=== PATIENT | female | born 1950 | race Caucasian/White ===

== ENCOUNTER 2016-11-01 17:10 | Emergency (ER) | payer BC ==
[2016-11-01 17:21] VITALS: BP 128/64
--- NOTE | 2016-11-01 17:42 | UC ---
Upper Extremity HPI - HPI Summary HPI Summary: 65 y/o female presents to the urgent care c/o a very bruised left ring finger since yesterday. Pt doesn't recall any injury or insect bite. She was at a conference when she noticed. She applied ice and it became more purplish in color. Pt denies pain, swelling, numbness, SOB, chest pain, N/V/D. - History of Current Complaint Chief Complaint: UCUpperExtremity Stated Complaint: FINGER INJURY Time Seen by Provider: 11/01/16 17:33 Hx Obtained From: Patient Hx Last Menstrual Period: menopausal ?: No Onset/Duration: Sudden Onset, Lasting Days - 1 Severity Initially: Mild Severity Currently: Moderate Pain Intensity: 0 Pain Scale Used: 0-10 Numeric Location Of Pain: Is Discrete @ - LF #4phalanx with a bruise Aggravating Factor(s): Nothing Alleviating Factor(s): Other: - nothing Associated Signs And Symptoms: Positive: Bruising. Negative: Swelling, Redness , Fever, Weakness, Numbness/Tingling - Risk Factors Non-Orthopedic Risk Factor: Negative DVT Risk Factors: Negative Septic Arthritis Risk Factor: Negative - Allergies/Home Medications Allergies/Adverse Reactions: Allergies Allergy/AdvReac Type Severity Reaction Status Date / Time No Known Allergies Allergy Verified 11/01/16 17:21 PMH/Surg Hx/FS Hx/Imm Hx Previously Healthy: Yes - Pt denies any PMHX - Surgical History Surgical History: None - Family History Family History: Dyslipidemia - Social History Occupation: Employed Full-time Lives: With Family Alcohol Use: None Substance Use Type: None Smoking Status (MU): Never Smoked Tobacco Review of Systems Constitutional: Negative Skin: Bruising - LT #4 phalanx Eyes: Negative ENT: Negative Respiratory: Negative Cardiovascular: Negative Gastrointestinal: Negative Genitourinary: Negative Motor: Negative Neurovascular: Negative Musculoskeletal: Negative Neurological: Negative Psychological: Negative Is Patient Immunocompromised?: No All Other Systems Reviewed And Are Negative: Yes Physical Exam Triage Information Reviewed: Yes Appearance: Well-Appearing, No Pain Distress, Well-Nourished, Thin Vital Signs: Initial Vital Signs Temp 99.9 F 11/01/16 17:16 Pulse 62 11/01/16 17:16 Resp 16 11/01/16 17:16 BP 128/64 11/01/16 17:16 Pulse Ox 100 11/01/16 17:16 Vital Signs Reviewed: Yes Eye Exam: Normal Eyes: Positive: Conjunctiva Clear - PERRLA, EOMI ENT Exam: Normal ENT: Positive: Normal ENT inspection, Hearing grossly normal, Pharynx normal, TMs normal Neck exam: Normal Neck: Positive: Supple, Nontender, No Lymphadenopathy Respiratory Exam: Normal Respiratory: Positive: Chest non-tender, Lungs clear, Normal breath sounds, No respiratory distress Cardiovascular Exam: Normal Cardiovascular: Positive: RRR, No Murmur, Pulses Normal, Brisk Capillary Refill Abdominal Exam: Normal Abdomen Description: Positive: Nontender, No Organomegaly, Soft. Negative: CVA Tenderness (R), CVA Tenderness (L) Bowel Sounds: Positive: Present Musculoskeletal Exam: Normal Musculoskeletal: Positive: Strength Intact, ROM Intact, No Edema Neurological Exam: Normal Neurological: Positive: Alert, Muscle Tone Normal Psychological Exam: Normal Skin: Positive: Other - LF #4 phalanx with ventral bruising, no swelling, non tender to palaption, FROM of all LF hand phalanxes, no lymphadenopathy, brisk capillary refill, positive pulses, sensation WNL, positive reflexes. Pt with a wedding band in that phalanx Upper Extremity Course/Dx - Course Course Of Treatment: 65 y/o female presents to the urgent care c/o a very bruised left ring finger since yesterday. Pt doesn't recall any injury or insect bite. She was at a conference when she noticed. She applied ice and it became more purplish in color. Pt denies pain, swelling, numbness, SOB, chest pain, N/V/D. HX obtained. Pt W/o any PMHX or not taking any blood thinners. Pt with LF #4 phalanx superficial hematoma w/o known injury. Pt explained there probability on swelling and advised to removed wedding band. I tried to remove it with lubricant gel w/o any success. Pt stated the ring has been there for several years and it will be better to cut it. The Nurses Carole and Heraclio attemped to cut ring with ring cutter. only 3/4 of the ring was cut. Pt stopped procedure and stated she didn't want any more attemps. Pt's finger after attempted procedure with FROM and neurovascular intact. Pt explained the need to completed remove ring. Pt declined. Advised to f/u with PCP for further management. Pt understood and agreed D/C instructions and left the clinic ambulating. - Differential Dx/Diagnosis Differential Diagnosis/HQI/PQRI: Contusion, Fracture (Closed), Laceration, Strain Provider Diagnoses: 1- LF # 4 phalanx with a bruise - Physician Notification/Consults Discussed Patient Care With: Stan Rodriguez - DR Rodriguez agreed with Pt care and plan Discharge - Discharge Plan Condition: Stable Disposition: HOME Patient Education Materials: Contusion in Adults (ED) Referrals: Gregorio López MD [Primary Care Provider] - 1 Day Additional Instructions: 1- Please immerse your finger on ice and then in epson salt and warm water to improve circulation. 2- F/u with your PCP if your bruising increases in size and swelling develops for further evaluation and treatment
== END 2016-11-01 18:30 | disposition home or self-care (01) ==
LOC: UCEAST 17:10
DX: S60.042A Contusion of left ring finger without damage to nail, initial encounter (principal); X58.XXXA Exposure to other specified factors, initial encounter; Y93.9 Activity, unspecified; Y92.9 Unspecified place or not applicable
CPT/HCPCS: 99212; G0463